=== PATIENT | female | born 1995 | race African-American/Black ===

== ENCOUNTER 2016-08-03 16:13 | Emergency (ER) | payer OTHER ==
--- NOTE | ~2016-08-03 | US134 ---
[facility] A Service of [facility] RADIOLOGY TEXT RESULTS PATIENT: LUIS BAUTISTA LOCATION: [place] : [birth year] UNIT #: [id number] AGE: [address]: Winston Rhoades DO SEX: F ORDER DR: [id number] [facility] [address] [place], [place] [address] [id number] MR#: [id number] Acc #: [id number] NAME: LUIS BAUTISTA : 1995 SEX: F STUDY DATE/TIME: 08/03/2016 18:20 UNIT: [facility] ROOM: STUDY DESCRIPTION: US Transvaginal Attending Physician: Winston Rhoades D.O. Ordering Physician: Winston Rhoades D.O. Primary Care Physician: Consuelo Caruso M.D. MEDICAL IMAGING REPORT This report is preliminary unless electronic signature is present EXAM Ultrasound transvaginal, 08/03/2016. HISTORY Patient takes Depo. No known last menstrual period x1 year. G1, P0, A0. Quantitative beta hCG 77,276. TECHNIQUE Real-time ultrasonography of the pelvic structures performed transvaginally. FINDINGS Study somewhat limited in the absence of transabdominal overview. Visualized urinary bladder unremarkable. The uterus measures approximately 8.9 cm x 6.3 cm x 7.5 cm. There is a single intrauterine gestation present. Femur length suggests gestational age 12 weeks, 4 days. Cardiac activity is present with heart rate 163 beats per minute. Placenta is anterior. The placenta on the images provided does overlap the internal cervical os. Attention at followup recommended. presentation vertex at this time. Formal structural survey not performed. Abdominal circumference suggests gestational age 12 weeks 1 day. Biparietal diameter suggesting gestational age 12 weeks 4 days. There is not yet complete apposition of the amnion and chorion. Right ovary measures approximately 3.55 cm x 1.08 cm x 3.27 cm and contains small follicular cysts. Arterial and venous flow in the right ovary. The left ovary measures 3.50 cm x 2.06 cm. Arterial and venous flow noted. Slightly heterogeneous structure in the left ovary measuring 2.27 cm x 1.60 cm x 1.70 cm with a relatively thick wall and some peripheral vascularity and relative central hypodensity favored to reflect evolving corpus luteum of . Trace amount of free fluid suggested in the pelvis. IMPRESSION [facility] A Service of [facility] RADIOLOGY TEXT RESULTS PATIENT: LUIS BAUTISTA LOCATION: [facility] : [birth year] UNIT #: [id number] AGE: [address]: Winston Rhoades DO SEX: F ORDER DR: 1. There is a single intrauterine present. Cardiac activity is present with heart rate 163 beats per minute. On basis of ultrasound measurements, the overall average ultrasound gestational age is approximately 12 weeks 1 day. Estimated date of delivery 02/14/2017. 2. presentation is vertex. Placenta is anterior and placenta does appear to overlap the internal cervical os. Attention at followup recommended. 3. Formal obstetric survey not performed. Formal obstetric followup and ultrasound strongly recommended. 4. Small amount of free fluid in pelvis. 5. Arterial and venous flow in bilateral ovaries. Relatively thick-walled structure in the left ovary measuring up to 2.2 cm in diameter, with some slight peripheral vascularity and relative central hypoechogenicity, most likely represents involuting corpus luteum of . Dictated by... Jitendra Liriano M.D. THIS IS AN ELECTRONICALLY VERIFIED REPORT Jitendra Liriano M.D. at 08/05/2016 11:31 AM Van TD: 08/04/2016 07:46 JOB #: [id number] MEDICAL IMAGING REPORT Page 1 of 1 COPY
[2016-08-03 17:16] LABS: URINE SOURCE CLEAN CATCH
[2016-08-03 17:22] LABS: URINE APPEARANCE CLOUDY; URINE BILIRUBIN NEG (NEG); URINE BLOOD NEG (NEG); URINE COLOR YELLOW; URINE GLUCOSE NEG (NEG); URINE KETONE 1+ (NEG); URINE LEUKOCYTE ESTERASE TRACE (NEG); URINE NITRATE NEG (NEG); URINE PROTEIN NEG (NEG); URINE SPECIFIC GRAVITY 1.025 (1.003-1.035)
[2016-08-03 17:25] LABS: CULTURE INDICATED? YES; URINE BACTERIA AUWI 2+ (NEGATIVE); URINE SQUAMOUS EPITHELIAL CELL MOD /[HPF]
[2016-08-03 17:25] LABS: BASOPHIL% 0.1 % (0-2.5); EOSINOPHIL# 0.1 X10e3 (0-0.7); EOSINOPHIL% 0.9 % (0.0-7.0); HEMATOCRIT 40.8 % (35.0-45.0); HEMOGLOBIN 13.6 gm/dL (12.0-16.0); LYMPHOCYTE# 2.1 X10e3 (1.0-3.5); LYMPHOCYTE% 14.6 % (17.0-45.0); MEAN CELL VOLUME 86.4 FL (83-96); MEAN CORPUSCULAR HEMOGLOBIN 28.9 PG (28-34); MEAN CORPUSCULAR HGB CONC 33.4 g/dL (30-36); MEAN PLATELET VOLUME 9.8 FL (6.5-11.5); MONOCYTE# 0.8 X10e3 (0-1.0); MONOCYTE% 5.5 % (3.0-12.0); NEUTROPHIL# 11.4 X10e3 (1.5-7.1); NEUTROPHIL% 78.9 % (40-75); PLATELET COUNT 190 X10e3 (140-420); RED BLOOD COUNT 4.72 X10e (3.90-5.30); RED CELL DISTRIBUTION WIDTH 13.4 % (11.0-15.5); WHITE BLOOD COUNT 14.5 X10e3 (4.0-10.5)
[2016-08-03 17:26] LABS: DIFF IND NO
[2016-08-03 17:43] LABS: ALBUMIN SERUM 3.9 g/dL (3.5-5.0); BILIRUBIN,TOTAL 0.6 mg/dL (0.2-2.0); CALCIUM SERUM 8.8 mg/dL (8.4-10.2); CREATININE SERUM 0.6 mg/dL (0.6-1.4); GLOM FILT RATE Estimated 131.2 mL/min (>60); POTASSIUM 3.2 mmol/L (3.5-5.1); PROTEIN TOTAL SERUM 7.2 g/dL (6.0-8.3)
[2016-08-06 22:11] LABS: CHLAMYDIA TRACH Not Detected (Not Detected); N GONOR Not Detected (Not Detected)
== END 2016-08-03 21:45 | disposition home or self-care (01) ==
LOC: CED 16:13
PROVIDERS: Emergency Medicine
DX: O20.0 Threatened abortion (principal); O99.341 Other mental disorders complicating pregnancy, first trimester; O23.42 Unspecified infection of urinary tract in pregnancy, second trimester; Z3A.12 12 weeks gestation of pregnancy; Z3A.15 15 weeks gestation of pregnancy; F41.9 Anxiety disorder, unspecified
CPT/HCPCS: 36415; 76801; 76830; 80053; 81003; 84702; 84703; 85025; 87086; 87491; 87591; 87808; 87905; 99284